=== PATIENT | male | born 1945 | race Caucasian/White ===

== ENCOUNTER 2018-12-25 16:25 | Observation (INO) ==
[2018-12-25 16:53] LABS: Basophils % 0.2 % (0.0-0.8); Eosinophils % 0.2 % (0.00-10.9); Hematocrit 42.5 VOL% (42.0-52.0); Hemoglobin 14.5 GM/DL (14.0-18.0); Immature Granulocytes % 0.9 %; Immature Granulocytes Absolute 0.11 #; Lymphocytes # 4.3 10*3/uL (1.4-4.0); Mean Corpuscular HGB Conc 34.1 GM/DL (32-36); Mean Platelet Volume 8.8 FL (9.6-12.0); Monocytes % 6.6 % (1.7-12.7); Neutrophils % 57.1 % (38.7-73.9); Platelet Count 248 T/CUMM (130-400); Red Blood Count 4.67 MC/CUMM (3.8-5.5); Red Cell Distribution Width 13.9 % (9.3-17.3); White Blood Count 12.2 T/CUMM (4-12)
[2018-12-25 17:03] LABS: PT Patient Result 10.5 SECS (9.6-12.2)
[2018-12-25 17:26] LABS: Bilirubin,Total 0.6 MG/DL (0.2-1.0); Osmolality,Calculated 283.3 MOS/KG (273-304); Thyroid Stimulating Hormone 1.49 uIU/ml (0.358-3.74); Total Protein 6.9 G/DL (6.4-8.3)
[2018-12-25] MEDS ORDERED: amLODIPine 5 MG TABLET PO STA (18:30)
[2018-12-25] MEDS ORDERED: ONDANSETRON 4 MG/2 ML VIAL IV PRN (19:44)
[2018-12-25] MEDS ORDERED: PANTOPRAZOLE 40 MG TABLET PO SCH (21:00)
[2018-12-25] MEDS: ATORVASTATIN 40 MG TABLET PO SCH (21:47)
[2018-12-25] MEDS: PANTOPRAZOLE 40 MG TABLET PO SCH (21:47)
[2018-12-25] MEDS: MONTELUKAST 10 MG TABLET PO SCH (21:47)
[2018-12-25] MEDS: ASPIRIN EC 81 MG TABLET PO SCH (21:47)
[2018-12-26] MEDS: ACETAMINOPHEN 325 MG TABLET PO PRN ×2 (04:24→08:34)
[2018-12-26 05:38] LABS: Basophils % 0.3 % (0.0-0.8); Eosinophils # 0.1 10*3/uL (0.0-0.87); Eosinophils % 0.7 % (0.00-10.9); Hematocrit 41.9 VOL% (42.0-52.0); Hemoglobin 14.1 GM/DL (14.0-18.0); Immature Granulocytes % 1.1 %; Immature Granulocytes Absolute 0.08 #; Lymphocytes # 3.1 10*3/uL (1.4-4.0); Lymphocytes % 41.2 % (21.2-54.2); Mean Corpuscular HGB Conc 33.7 GM/DL (32-36); Mean Corpuscular Volume 92.3 FL (87-102); Mean Platelet Volume 8.8 FL (9.6-12.0); Monocytes % 8.6 % (1.7-12.7); Neutrophils % 48.1 % (38.7-73.9); Platelet Count 238 T/CUMM (130-400); Red Blood Count 4.54 MC/CUMM (3.8-5.5); White Blood Count 7.6 T/CUMM (4-12)
[2018-12-26 05:56] LABS: Risk Ratio 3.55; VLDL CHOLESTEROL 38.8 MG/DL
[2018-12-26 07:28] LABS: Apearance,Urine CLEAR (Clear); Bilirubin,Urine Negative (Negative); Blood, Urine Negative (Negative); Calcium Oxalate Crystals,Urine Occasional /HPF (Few); Glucose,Urine (UA) Negative (Negative); Ketones,Urine Negative (Negative); Mucus,Urine Occasional /LPF (Occasional); Nitrite,Urine Negative (Negative); Protein,Urine Negative; RBC,Urine <1 /HPF (0-4); Squamous Epithelial Cell,Urine Occasional /HPF (0-10); Urine Color Yellow (Yellow); Urine Specific Gravity 1.018 (1.001-1.035); Urine Urobilinogen < 2.0 EU/DL (0.2-1.0); WBC,Urine 1 /HPF (0-6)
[2018-12-26] MEDS: PANTOPRAZOLE 40 MG TABLET PO SCH ×2 (08:29→21:17)
[2018-12-26] MEDS: amLODIPine 5 MG TABLET PO SCH (08:30)
[2018-12-26] MEDS: ATORVASTATIN 40 MG TABLET PO SCH (21:17)
[2018-12-26] MEDS: MONTELUKAST 10 MG TABLET PO SCH (21:17)
[2018-12-26] MEDS: ASPIRIN EC 81 MG TABLET PO SCH (21:17)
[2018-12-27] MEDS: amLODIPine 5 MG TABLET PO SCH (09:03)
[2018-12-27] MEDS: PANTOPRAZOLE 40 MG TABLET PO SCH (09:03)
[2018-12-27 12:11] VITALS: BP 112/76
== END 2018-12-27 13:02 | disposition home or self-care (01) ==
LOC: N.ED 16:25 → N.EDINP 16:25 → N.5E 19:48
PROVIDERS: ADMIT Internal Medicine; ATTEND Internal Medicine